=== PATIENT | male | born 1995 | race African-American/Black ===

== ENCOUNTER 2018-01-10 16:27 | Emergency (ER) | payer MEDICAID ==
[~2018-01-10] VITALS: Ht 170.2 cm; Wt 62.6 kg
[2018-01-10 16:48] VITALS: BP 105/56
== END 2018-01-10 18:16 | disposition home or self-care (01) ==
LOC: ER 16:29
DX: S16.1XXA Strain of muscle, fascia and tendon at neck level, initial encounter (principal); Z88.0 Allergy status to penicillin; X50.0XXA Overexertion from strenuous movement or load, initial encounter; Y93.89 Activity, other specified; Y99.8 Other external cause status; Y92.89 Other specified places as the place of occurrence of the external cause

== ENCOUNTER 2018-03-03 00:32 | Emergency (ER) | payer MEDICAID | END 2018-03-03 02:10 | disposition left against medical advice (07) | LOC: ER 00:32 | DX: M25.512 Pain in left shoulder (principal); Z53.21 Procedure and treatment not carried out due to patient leaving prior to being seen by health care provider ==

== ENCOUNTER 2018-03-03 10:27 | Emergency (ER) | payer MEDICAID ==
[~2018-03-03] VITALS: Ht 172.7 cm; Wt 63.0 kg
[2018-03-03 11:56] VITALS: BP 108/68
[2018-03-03] MEDS ORDERED: KETOROLAC TROMETH 60MG/2ML VIAL IM ONE (12:30)
== END 2018-03-03 13:04 | disposition home or self-care (01) ==
LOC: ER 10:27
DX: M25.512 Pain in left shoulder (principal); Z88.0 Allergy status to penicillin
CPT/HCPCS: 73030; 96372; 99284; J1885

== ENCOUNTER 2019-05-02 18:39 | Emergency (ER) | payer SELFPAY ==
[~2019-05-02] VITALS: Ht 170.2 cm; Wt 63.5 kg
[2019-05-02 20:13] VITALS: BP 115/68
[2019-05-02] MEDS ORDERED: DexAMETHasone SOD PHOS 10MG/1ML VIAL INJ IM ONE (21:00)
[2019-05-02] MEDS ORDERED: BACLOFEN 10 MG TAB PO ONE (21:00)
== END 2019-05-02 21:53 | disposition home or self-care (01) ==
LOC: ER 18:39
DX: M62.838 Other muscle spasm (principal); Z88.0 Allergy status to penicillin
CPT/HCPCS: 96372; 99283; J1100

== ENCOUNTER 2024-06-08 11:25 | Emergency (ER) | payer MEDICAID ==
[~2024-06-08] VITALS: Ht 172.7 cm; Wt 70.6 kg
[2024-06-08 12:32] VITALS: BP 114/74; PULSE 82; RESP 18; TEMP 98; O2SAT 99
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
[2024-06-08] MEDS ORDERED: IBUP1TAB5 PO (13:43)
== END 2024-06-08 13:54 | disposition home or self-care (01) ==
LOC: ER 11:27
DX: S90.32XA Contusion of left foot, initial encounter (principal); Z88.0 Allergy status to penicillin; V98.8XXA Other specified transport accidents, initial encounter; Y93.55 Activity, bike riding; Y92.89 Other specified places as the place of occurrence of the external cause; Y99.8 Other external cause status
CPT/HCPCS: 73630